=== PATIENT | male | born 1980 | race Caucasian/White ===

== ENCOUNTER → 2018-12-08 11:13 | Outpatient (CLI) | payer OTHER, SELFPAY ==
[2018-12-08 09:24] VITALS: BMI 23.3
--- NOTE | 2018-12-08 09:25 | LES_PTH ---
PATIENT: SARMAD NICOLAS LOC: [facility] U#:[id number] AGE/SX: 45/M ROOM: RE12/08/[address]: Dr. Gustavo Clancy MD : 1980 BED: DIS: SPEC #: [id number] RECD: 12/08/18 11:10 STATUS: TC LA[place]ISHA #: [id number] CULLEN: 12/08/18 09:[address]: Gustavo Clancy DEPT: SURGICAL PATHOLOGY RECD BY: Jim Ornelas Tissues: Skin of neck, NOS Procedures: Surgery Specimen Level III HEADER OPERATION: Excision of cyst on neck PRE-OP DIAGNOSIS: Cyst on neck left posterior TISSUE SUBMITTED: Cyst on neck left posterior MICROSCOPIC DIAGNOSIS Cyst of left posterior neck, excision: Epidermal inclusion cyst, mildly inflamed. AM:irene 12/09/18 MICROSCOPIC DESCRIPTION Slides are reviewed. GROSS DESCRIPTION Received in fixative is one container labeled with the patient's name and designated left posterior neck cyst. The specimen consists of an irregular fragment of glistening pink-landis soft tissue measuring 4 x 2.5 x 1 cm. The external surface is inked and the specimen is sectioned to reveal a small amount of cheesy white material. The cyst wall averages 0.2 cm in thickness. The specimen is serially sectioned and totally submitted in two cassettes. / AM:irene 12/08/18 TC:5 CPT: 67343
== END ==
PROVIDERS: Referring Provider Surgery; Visit Provider Surgery
DX: L72.0 Epidermal cyst (principal)
CPT/HCPCS: 88304; 88305